=== PATIENT | female | born 1955 | race Caucasian/White ===

== ENCOUNTER → 2019-09-10 14:28 | Outpatient (CLI) | payer SELFPAY, OTHER ==
--- NOTE | 2019-09-10 14:38 | US_ITS ---
STUDY: THYROID ULTRASOUND REASON FOR EXAM: Female, 63 years old. Hypothyroidism TECHNIQUE: Ultrasound evaluation of the thyroid was performed with real-time and static cota-scale imaging. COMPARISON: None. FINDINGS: RIGHT LOBE: The right lobe of the thyroid gland measures 3.2 x 0.9 x 0.9 cm. There is a homogeneous echotexture. 4 mm slightly hypoechoic solid nodule right lobe consistent with an adenoma. LEFT LOBE: The left lobe of the thyroid gland measures 2.7 x 0.6 x 0.8 cm. There is a homogeneous echotexture. There are no demonstrated solid, cystic or complex lesions. ISTHMUS: The isthmus measures 2 mm thick. . The regional lymph nodes are normal. US/Thyroid IMPRESSION: Small adenoma the right lobe. Electronically Signed: Efrain Hutson MD at 15:45 EDT Tel , Service support ,
--- NOTE | 2019-09-10 14:38 | BI_ITS ---
MAMMOGRAPHY - BILATERAL SCREENING REASON FOR EXAM: Female, 63 years old. Routine annual screening examination. PERTINENT HISTORY: Grandmother with breast cancer. TECHNIQUE: Digital bilateral breast megan (3D mammographic acquisition) in the CC and MLO projections. 2-D mediolateral oblique (MLO) and craniocaudad (CC) views of both breasts were obtained. CAD: Full Field Digital Mammography with Computer Added Detection was performed. COMPARISON: Comparison is made with the prior outside examination dated May 03, 2018. FINDINGS: Breast Composition: The breasts are heterogeneously dense, which may obscure small masses. There is an 8 mm x 6 mm well-defined nodule in the retroareolar region of the left breast. Over this with ultrasound is recommended. Stable small benign-appearing bilateral axillary lymph nodes. No other significant abnormalities are identified. There has been no significant change since the prior study. BI/SCREEN MAMM (CAD) W/MEGAN BILAT IMPRESSION: 8 mm x 6 mm well-defined nodule in the retroareolar region of the left breast as described. Correlation with ultrasound is recommended. ASSESSMENT CATEGORY: BIRADS Category 0: Incomplete. Need additional imaging evaluation. A letter regarding these results will be sent to the patient by the facility within 30 days. Approximately 10% of breast cancers are not detected by mammography. A normal mammogram should not delay biopsy of a clinically suspicious abnormality. [id number] Electronically Signed: Andrew Baker, at 8:25 EDT , Service support ,
== END ==
PROVIDERS: Family Provider Specialist; PCP Specialist; Referring Provider Specialist; Visit Provider Specialist
DX: E03.8 Other specified hypothyroidism (principal); E04.0 Nontoxic diffuse goiter; Z12.31 Encounter for screening mammogram for malignant neoplasm of breast
CPT/HCPCS: 76536; 77063; 77067

== ENCOUNTER → 2019-09-24 | Outpatient (CLI) | payer SELFPAY ==
--- NOTE | 2019-09-24 11:06 | US_ITS ---
STUDY: ULTRASOUND BREAST - LEFT REASON FOR EXAM: Female, 63 years old. Abnormal screening mammogram. TECHNIQUE: Axial and longitudinal images of the LEFT breast were performed with a high resolution ultrasound transducer. COMPARISON: Comparison is made with prior mammogram dated September 10, 2019. FINDINGS: LEFT Breast: The mammographic abnormality corresponds to a 6 mm x 6 mm x 6 mm cyst. This is at the 12:00 position of the breast at 2 cm from the nipple. US/Breast Limited Unilateral IMPRESSION: The mammographic abnormality corresponds to a 6 mm x 6 mm x 6 mm. ASSESSMENT CATEGORY: BIRADS Category 2: Benign. A letter regarding these results will be sent to the patient by the facility within 30 days. Electronically Signed: Andrew Baker, at 15:41 EDT , Service support ,
== END | disposition home or self-care (01) ==
PROVIDERS: Family Provider Specialist; PCP Specialist; Referring Provider Specialist; Visit Provider Specialist
DX: R92.8 Other abnormal and inconclusive findings on diagnostic imaging of breast (principal)
CPT/HCPCS: 76642

== ENCOUNTER → 2021-05-07 12:28 | Outpatient (CLI) | payer SELFPAY ==
--- NOTE | 2021-05-07 12:29 | US_ITS ---
STUDY: THYROID ULTRASOUND REASON FOR EXAM: Female, 65 years old. THYROID NODULE . Hypothyroidism. TECHNIQUE: Ultrasound evaluation of the thyroid was performed with real-time and static cota-scale imaging. COMPARISON: Comparison is made with prior examination of 09/10/2019. FINDINGS: RIGHT LOBE: The right lobe of the thyroid gland measures 2.9 cm x 0.7 cm x 0.9 cm. There is a homogeneous echotexture. There are no demonstrated solid, cystic or complex lesions. LEFT LOBE: The left lobe of the thyroid gland measures 2.5 cm x 0.6 cm x 0.6 cm. There is a homogeneous echotexture. There are no demonstrated solid, cystic or complex lesions. ISTHMUS: The isthmus measures 2 mm. The regional lymph nodes are normal. US/Thyroid IMPRESSION: Normal ultrasound examination of the thyroid. The previously seen 4 mm nodule in the right lobe of the thyroid is not visualized today. Electronically Signed: Andrew Baker MD at 15:26 EDT , Service support ,
== END ==
PROVIDERS: PCP Specialist; Referring Provider Family Medicine; Visit Provider Family Medicine
DX: E04.1 Nontoxic single thyroid nodule (principal)
CPT/HCPCS: 76536